=== PATIENT | male | born 1945 | race African-American/Black ===

== ENCOUNTER 2018-03-01 13:04 | Outpatient (RCR) | payer MEDICARE, MEDICAID ==
[2018-03-01] MEDS ORDERED: LISINOPRIL20 MG ORAL (15:00)
[2018-03-01] MEDS ORDERED: ATORVASTATIN CA10 MG ORAL (15:00)
[2018-03-01] MEDS ORDERED: ALLOPURINOL300 M1 ORAL (15:00)
[2018-03-01] MEDS ORDERED: FUROSEMIDE40 MG ORAL (15:00)
[2018-03-01] MEDS ORDERED: CEPHALEXIN500 MG ORAL (17:39)
[2018-03-01] MEDS ORDERED: CLINDAMYCIN HC300 MG ORAL (17:39)
== END 2018-03-10 | disposition home or self-care (01) ==
LOC: WCC 13:04
DX: L97.929 Non-pressure chronic ulcer of unspecified part of left lower leg with unspecified severity (principal); L97.813 Non-pressure chronic ulcer of other part of right lower leg with necrosis of muscle; L97.211 Non-pressure chronic ulcer of right calf limited to breakdown of skin; R60.0 Localized edema; L03.115 Cellulitis of right lower limb; L03.116 Cellulitis of left lower limb; I11.9 Hypertensive heart disease without heart failure
CPT/HCPCS: G0463

== ENCOUNTER 2019-11-21 09:17 | Day surgery (SDC) | payer MEDICARE, MEDICAID ==
[~2019-11-21] VITALS: Ht 160 cm; Wt 112.9 kg
[2019-11-21] VITALS (9 sets, daily range): BP systolic 128–147; BP diastolic 64–75
--- NOTE | 2019-11-21 06:57 | Pre-Procedure Note/Attestation ---
Pre-Procedure Note/Attestation Complete Prior to Procedure Planned Procedure: left Procedure Narrative: Removal of cataract and placement of intraocular lens, left eye Indications for Procedure Pre-Operative Diagnosis: Cataract, combined forms, left eye Attestation I attest that I discussed the nature of the procedure; its benefits; risks and complications; and alternatives (and the risks and benefits of such alternatives ), prior to the procedure, with the patient (or the patient's legal circulation sales representative). I attest that, if there was a reasonable possibility of needing a blood transfusion, the patient (or the patient's legal circulation sales representative) was given the [facility] standardized written summary, pursuant to the Ezequiel Penrose Blood Safety Act ([place] Health and Safety Code # 1645, as amended). I attest that I re-evaluated the patient just prior to the surgery and that there has been no change in the patient's H&P, except as documented below: Isidoro Mack MD November 21, 2019 06:57
[~2019-11-21 09:17] MED LIST: ALLOPURINOL300 M1 ORAL; ATORVASTATIN CA10 MG ORAL; BSS 15ml BTL ONE; BSS 500ml btl ONE; Bupivacaine 0.75% 30ml vial INJ ONE; CEPHALEXIN500 MG ORAL; CLINDAMYCIN HC300 MG ORAL; Carbachol 0.01% Op Soln 1.5ml vial ONE; Dexamethasone 4mg/ml vial ONE; EPINEPHrine 1mg/1ml Amp ONE; FUROSEMIDE40 MG ORAL; Fluorescein Strips ONE; LISINOPRIL20 MG ORAL; Lidocaine 1% MPF 10mg/ml 5ml ONE; Lidocaine 4% Amp 5ml ONE; Povidone-Iodine 5% opth solution ONE; Sodium Hyaluronate 10 mg/ml 0.85ml ONE; Tetracaine 0.5% Opth 4ml Soln ONE; prednisoLONE acetate 1% Opth Susp 1ml ONE; timoloL maleate 0.5% Op Soln 2.5ml ONE
[2019-11-21] MEDS ORDERED: Akten 3.5% 1ml Btl ONE (09:23)
[2019-11-21] MEDS ORDERED: Phenylephrine 10% Opth Soln 5ml ONE (09:23)
[2019-11-21] MEDS ORDERED: Cyclopentolate 1% Opth Sol 2ml ONE (09:23)
[2019-11-21] MEDS ORDERED: Tobradex Opth Susp 2.5ml ONE (09:23)
[2019-11-21] MEDS ORDERED: Ciprofloxacin Opth Soln 2.5ml ONE (09:23)
[2019-11-21] MEDS ORDERED: Tropicamide 1% Opth 15ml Soln ONE (09:23)
[2019-11-21] MEDS ORDERED: fentaNYL 100 mcg/2 mL IV ONE (09:49)
[2019-11-21] MEDS: Tobradex Opth Susp 2.5ml LEFT EYE SCH ×3 (09:55→10:08)
[2019-11-21] MEDS: Cyclopentolate 1% Opth Sol 2ml LEFT EYE SCH ×3 (09:55→10:07)
[2019-11-21] MEDS: Akten 3.5% 1ml Btl LEFT EYE SCH ×3 (09:56→10:08)
[2019-11-21] MEDS: Phenylephrine 10% Opth Soln 5ml LEFT EYE SCH ×3 (09:56→10:07)
[2019-11-21] MEDS: Tropicamide 1% Opth 15ml Soln LEFT EYE SCH ×3 (09:56→10:07)
[2019-11-21] MEDS: Ciprofloxacin Opth Soln 2.5ml LEFT EYE SCH ×3 (09:57→10:08)
[2019-11-21] MEDS ORDERED: NS Irrig 1000ml ONE (10:00)
[2019-11-21] MEDS ORDERED: LR 1000ml ONE (10:00)
[2019-11-21] MEDS ORDERED: Sterile Water Irrig 1000ml IRRIG ONE (10:00)
[2019-11-21] MEDS ORDERED: FUROSEMIDE20 M1 ORAL (10:02)
[2019-11-21] MEDS ORDERED: FISH OIL CAP1000 MG ORAL (10:02)
[2019-11-21] MEDS ORDERED: LR 1000ml 1,000 ML IVLG SCH (10:17)
--- NOTE | 2019-11-21 10:17 | Anethesia Preoperative Eval ---
Anesthesia Pre-op PMH/ROS General Date of Evaluation: November 21, 2019 Time of Evaluation: 10:14 Anesthesiologist: Karl ASA Score: ASA 3 Mallampati Score Class I : Soft palate, uvula, fauces, pillars visible Class II: Soft palate, uvula, fauces visible Class III: Soft palate, base of uvula visible Class IV: Only hard plate visible Mallampati Classification: Class III Surgeon: Martina Diagnosis: L eye cataract Surgical Procedure: Cataract extraction Anesthesia History: none Family History: no anesthesia problems Allergies: Coded Allergies: No Known Allergies (Unverified , 03/01/18) Medications: see eMAR Patient NPO?: Yes Past Medical History Cardiovascular: Reports: HTN, other - CHF; Denies: CAD, ME, valve dz, arrhythmia Pulmonary: Reports: IRINA; Denies: asthma, COPD, other Gastrointestinal/Genitourinary: Reports: GERD; Denies: CRI, ESRD, other Neurologic/Psychiatric: Reports: other - chronic pain; Denies: dementia, CVA, depression/anxiety, TIA Endocrine: Denies: DM, hypothyroidism, steroids, other HEENT: Reports: cataract (L), cataract (R); Denies: glaucoma, ALUTIIQ (L), ALUTIIQ (R), other Hematology/Immune: Denies: anemia, DVT, bleeding disorder, other Musculoskeletal/Integumentary: Reports: OA; Denies: RA, DJD, DDD, edema, other Other: obesity - morbid obesity PMH Narrative: as above PSxH Narrative: see H&P Anesthesia Pre-op Phys. Exam Physician Exam Last Vital Signs Date Time Temp Pulse Resp B/P (MAP) Pulse Ox O2 Delivery O2 Flow Rate FiO2 11/21/19 09:51 96.9 78 18 145/72 100 Room Air Constitutional: NAD Neurologic: CN 2-12 intact Cardiovascular: RRR, no M/R/G Respiratory: other - diminished breath sounds Gastrointestinal: other - obesity Airway Exam Mallampati Score: Class III MO: limited Neck: short ROM: limited Teeth: missing Dentures: no upper, no lower Anesthesia Pre-op A/P Labs see chart Risk Assessment & Plan Assessment: ASA 3 Plan: MAC Status Change Before Surgery: No Pre-Antibiotics Drug: none Jemal Barajas MD November 21, 2019 10:17
[2019-11-21] MEDS ORDERED: Polysporin Opth Oint 3.5gm ONE (10:23)
[2019-11-21] MEDS ORDERED: fentaNYL 100 mcg/2 mL IV PRN (10:30)
[2019-11-21] MEDS ORDERED: EPINEPHrine 1mg/1ml Amp ONE (10:32)
[2019-11-21] MEDS ORDERED: BSS 500ml btl ONE (10:32)
--- NOTE | 2019-11-21 12:06 | Discharge Instructions ---
Discharge Instructions Discharge Instructions Follow Up Orders Wear eye shield at all times except to place eye drops Continue preoperative eye drops EXCEPT ATROPINE EYE DROPS DO NOT USE ATROPINE EYE DROPS !!!! (THIS HAS A MANAGER DOCUMENTATION. DO NOT USE!!!) Followup tomorrow in Dr Mack's office Return to Work/School on: November 21, 2019 For Congestive Heart Failure Reminder Report to your physician any weight gain of 5 pounds or more in one week. Isidoro Mack MD November 21, 2019 12:06
--- NOTE | 2019-11-21 12:06 | Immediate Post-Op Evaluation ---
Immediate Post-Op Evalulation Immediate Post-Op Evalulation Procedure: L eye cataract extraction with IOL Date of Evaluation: November 21, 2019 Time of Evaluation: 12:04 IV Fluids: 500 Blood Products: none Estimated Blood Loss: none Urinary Output: none Blood Pressure Systolic: 136 Blood Pressure Diastolic: 72 Pulse Rate: 76 Respiratory Rate: 20 O2 Sat by Pulse Oximetry: 99 Temperature (Fahrenheit): 97.8 Pain Score (1-10): 1 Nausea: No Vomiting: No Complications none Patient Status: awake, patent, vomiting, none Hydration Status: adequate Jemal Barajas MD November 21, 2019 12:06
--- NOTE | 2019-11-21 12:10 | Brief Operative Note ---
Immediate Post Operative Note Operative Note Pre-op Diagnosis: Cataract, combined forms, left eye Procedure: Removal of cataract and placement of intraocular lens, left eye Post-op Diagnosis: Dense, combined cataract, left eye Floppy iris syndrome, left eye Surgeon: Chacho Mack MD Automobile Carpets Molder: none Anesthesiologist: Dr Barajas Anesthesia: local, MAC Specimen: none Complications: none Fluids: see chart Implant(s) used?: Yes - Borja Tecnis 21.0 Isidoro Mack MD November 21, 2019 12:10
--- NOTE | 2019-11-21 12:33 | 48 Hour Post Anesthesia Eval ---
Post Anesthesia Evaluation Procedure: L eye cataract extraction with IOL Date of Evaluation: November 21, 2019 Time of Evaluation: 12:31 Blood Pressure Systolic: 142 0: 76 Pulse Rate: 72 Respiratory Rate: 20 Temperature (Fahrenheit): 97.6 O2 Sat by Pulse Oximetry: 98 Airway: patent Nausea: No Vomiting: No Pain Intensity: 1 Cardiopulmonary Status: stable Mental Status/LOC: patient returned to baseline Follow-up Care/Observations: n/a Post-Anesthesia Complications: none Follow-up care needed: ready to discharge Jemal Barajas MD November 21, 2019 12:33
--- NOTE | 2019-11-21 20:44 | Operative Note - Dictated ---
DATE OF OPERATION: 11/21/2019 SURGEON: Isidoro Mack MD. FOREIGN SERVICE OFFICER SURGEON: None. ANESTHESIOLOGIST: Dr. Barajas. ANESTHESIA: Local/standby/monitored anesthesia care. PREOPERATIVE DIAGNOSIS: Combined cataract, left eye. POSTOPERATIVE DIAGNOSES: 1. Cataract, combined, left eye. 2. Floppy iris syndrome, left eye. PROCEDURE: 1. Phacoemulsification of cataract, left eye (model Borja, Tecnis, model ZCB00, power 21.0). 2. Use of VisionBlue for capsular staining. 3. Use of Malyugin ring (7.0 mm). SPECIMENS: None. COMPLICATIONS: None. INDICATIONS FOR SURGERY: The patient has had the painless progressive decrease in visual acuity in the left eye secondary to cataract. The patient understands the risks of surgery including infection, bleeding, need for further surgery, loss of vision, no improvement in vision, loss of the eye, loss of life, glaucoma, retinal detachment, understands these risks and elects to proceed with surgery. FINDINGS: The patient had a very dense +4 central white cataract. At the beginning of the procedure, the iris medially was a floppy iris. The patient also had a +4 posterior subcapsular cataract in addition to the dense central nuclear cataract. The procedure was without complications and the capsule remained intact during the entire procedure. OPERATIVE NOTE: After informed consent was obtained, the patient was brought into the operating room, placed in supine position. Cardiac and respiratory monitors were attached. At this time, the scope was checked and the light came on and was working normally. A time-out was performed and all criteria were met and everyone in the room agreed. The left eye was then draped and prepped in a sterile manner for ocular surgery. A lid speculum was placed in the eye. The 1% lidocaine preservative-free was injected at the approximate 2 o'clock limbus and a conjunctiva peritomy from approximately 2 o'clock to 3 o'clock was made and dissected posteriorly. Hemostasis was maintained with bipolar cautery. The paracentesis was made at approximately 4 o'clock and Shugarcaine was injected into the anterior chamber followed by Healon. The anterior chamber was then entered using a 2.6 mm keratome. At this point, the foot pedal did not work and the scope had to be replaced. A second scope was brought in and this was brought into the field and the light did not become bright enough. This had a very dim light and the bulb could not be changed. A third scope was then brought into the operating room, and this scope was fine with the foot pedal working and the light was bright. Attention was then paid to the eye and Healon was irrigated from the anterior chamber and an air bubble was placed in the eye and Vision Blue was placed into the anterior chamber and the anterior capsule was then stained and then this was irrigated from the anterior chamber. Healon was then placed into the anterior chamber and an anterior capsulorrhexis was then performed without difficulty. Hydrodissection and hydrodelineation of the lens was then performed. The lens was then phacoemulsified using divide and conquer four-quadrant technique. Again, the cataract was very dense centrally and needed to go up and the phacoemulsification unit needs to go up the power in order to phacoemulsify the lens. After the lens was removed, cortical material was removed with an I/A tip. Healon was then injected into the anterior chamber and capsular bag. The lens was taken from its package, placed into the cartridge and the tip of the cartridge was placed through the limbal incision. The lens was injected into the capsular bag and centered nicely with a Sinskey hook. It was centered along the 3 o'clock and 9 o'clock axis. Healon was then injected into the anterior chamber and the Malyugin ring was then unhooked from the limbus and then removed. Healon was then aspirated from the anterior chamber and capsular bag. The lens was checked again and noted to be centered and in the 3 o'clock and 9 o'clock meridian. Both the optic and both haptics were in the capsular bag. This was visualized. Miostat was then injected into the anterior chamber. The pupil came down nicely and round. One 10-0 nylon interrupted suture was then placed through the limbal incision. The knot was rotated and buried. Hydration of the wounds was performed prior to placing the suture. All wounds were checked and found to be watertight. The conjunctiva was then closed with forceps cautery. The lid speculum and drapes were removed from the eye and drops of TobraDex and Pred Forte were applied to the eye followed by ciprofloxacin drops and Maxitrol ointment. A shield was then placed on the eye. The patient left the operating room, awake, alert, and in stable condition. Isidoro Mack M.D. DR: LOUANN JOB#: [id number] CC:
== END 2019-11-21 13:30 | disposition home or self-care (01) ==
LOC: SUR 09:17
DX: H25.042 Posterior subcapsular polar age-related cataract, left eye (principal); H25.12 Age-related nuclear cataract, left eye; H21.81 Floppy iris syndrome; I11.0 Hypertensive heart disease with heart failure; I50.9 Heart failure, unspecified; G47.33 Obstructive sleep apnea (adult) (pediatric); K21.9 Gastro-esophageal reflux disease without esophagitis; E66.01 Morbid (severe) obesity due to excess calories; M19.90 Unspecified osteoarthritis, unspecified site; Z68.41 Body mass index [BMI] 40.0-44.9, adult
CPT/HCPCS: 94003; 94150